=== PATIENT | male | born 1990 ===

== ENCOUNTER 2022-12-30 19:25 | Emergency (ER) | payer OTHER ==
[~2022-12-30] VITALS: Ht 175.3 cm; Wt 161.4 kg
[2022-12-30 19:33] VITALS: BP 158/88; PULSE 111; RESP 16; TEMP 99.4
[2022-12-30] MEDS ORDERED: NEOMYCIN/POLYMYXIN B/HYDROCORT 10 ML OTIC SUSPENSION AS ONE (20:30)
== END 2022-12-30 20:40 | disposition home or self-care (01) ==
LOC: EMS 19:26
DX: H60.92 Unspecified otitis externa, left ear (principal); Z98.890 Other specified postprocedural states
CPT/HCPCS: 99283

== ENCOUNTER 2023-10-16 23:58 | Emergency (ER) | payer OTHER ==
[~2023-10-16] VITALS: Ht 175.3 cm; Wt 161.4 kg
[2023-10-17 00:05] VITALS: BP 139/88; PULSE 83; RESP 18; TEMP 97.4
[2023-10-17] MEDS ORDERED: LEVO750T68 PO (00:31)
[2023-10-17] MEDS ORDERED: TRAM50TA5 PO (00:35)
[2023-10-17] MEDS: KETOROLAC TROMETHAMINE 30 MG/ML VIAL IM ONE (00:39)
[2023-10-17] MEDS: TraMADol HCL 50 MG TABLET PO ONE (00:39)
== END 2023-10-17 00:45 | disposition home or self-care (01) ==
LOC: EMS 23:58
DX: H66.92 Otitis media, unspecified, left ear (principal); Z98.890 Other specified postprocedural states
CPT/HCPCS: 99283; 96372; J1885